=== PATIENT | female | born 1980 | race African-American/Black ===

== ENCOUNTER → 2023-03-04 | Outpatient (REF) | payer BC | LOC: MAMMO 15:54 | PROVIDERS: ATTEND Family Medicine | DX: Z12.31 Encounter for screening mammogram for malignant neoplasm of breast (principal) | CPT/HCPCS: 77067 ==

== ENCOUNTER → 2024-07-20 | Outpatient (REF) | payer BC | LOC: MAMMO 07:50 | PROVIDERS: ATTEND Family Medicine | DX: Z12.31 Encounter for screening mammogram for malignant neoplasm of breast (principal) | CPT/HCPCS: 77067 ==